=== PATIENT | female | born 1995 | race Caucasian/White ===

== ENCOUNTER → 2020-01-11 12:29 | Outpatient (BNVA) | payer OTHER, SELFPAY | PROVIDERS: PCP Internal Medicine; Referring Provider Internal Medicine; Visit Provider Advanced Practice Midwife | DX: Z76.89 Persons encountering health services in other specified circumstances (principal) ==

== ENCOUNTER 2020-11-14 10:00 | Outpatient (REF) | payer OTHER, SELFPAY ==
[2020-11-14 13:37] LABS: CT PCR NOT DETECTED (Not Detect.); NG PCR NOT DETECTED (Not Detect.)
== END 2020-11-14 10:01 | disposition home or self-care (01) ==
LOC: HO.LAB 10:00
PROVIDERS: PCP Internal Medicine; Visit Provider Advanced Practice Midwife
DX: Z11.3 Encounter for screening for infections with a predominantly sexual mode of transmission (principal); Z20.2 Contact with and (suspected) exposure to infections with a predominantly sexual mode of transmission
CPT/HCPCS: 87491; 87591

== ENCOUNTER 2021-11-19 11:10 | Outpatient (REF) | payer BC, SELFPAY ==
[2021-11-19 14:44] LABS: CT PCR NOT DETECTED (Not Detect.); NG PCR NOT DETECTED (Not Detect.)
== END 2021-11-19 11:11 | disposition home or self-care (01) ==
LOC: HO.LAB 11:10
PROVIDERS: Visit Provider Advanced Practice Midwife
DX: Z01.419 Encounter for gynecological examination (general) (routine) without abnormal findings (principal)
CPT/HCPCS: 87491; 87591; 88142

== ENCOUNTER 2022-12-26 08:53 | Outpatient (REF) | payer BC, SELFPAY | END 2022-12-26 08:54 | disposition home or self-care (01) | LOC: HO.LNP 08:53 | PROVIDERS: Visit Provider Advanced Practice Midwife | DX: Z13.89 Encounter for screening for other disorder (principal) ==

== ENCOUNTER 2022-12-26 08:53 | Outpatient (AMB) | payer BC, SELFPAY ==
--- NOTE | 2022-12-26 08:56 | MHC.OFFVIS ---
Intake Vital Signs 12/26/22 08:57 Height 5 ft 3 in Weight 196 lb BMI 34.7 BP 100/60 Intake Visit Reasons: Annual Intake Note: The patient agreed to use of a medical stenographer during this encounter. Scribed for AIDA Villarreal by Jennifer Marrero, medical stenographer, on 12/26/2022 at 9:08 am EST. Cold Saw Operator: Cold Saw Operator Present (Jocelyn) Allergies No Known Allergies Allergy (Verified 12/26/22 08:57) Latex Allergy (Unknown, Uncoded 11/19/21 10:33) swollen Is last menstrual period known: Yes Last menstrual period: 12/25/22 HPI HPI Comments History of Present Illness Details She is a premenopausal woman presenting for annual exam. She admits to eating healthy and tries to stay active with exercise. Currently sexually active. Uses OCP and is doing well with it. She is not interested in ever having children. Wanted to know her snf options. Admits left sided vaginal itching. Denies any new soaps or detergents. STD screening and blood work offered; she accepts. Denies family hx of colon and ovarian cancer. Last pap smear 11/19/21. She denies any contraindications to control such as: migraines with aura, history of DVT or pulmonary emboli, high blood pressure, liver disease, thrombolic disorders, Lupus, +JHONNY, or smoking. [facility] Medical History History of anxiety disorder History of OCD (obsessive compulsive disorder) History of depression Hx of multiple concussions Surgical History Hx of adenoidectomy Family History (Updated 12/26/22 @ 09:10 by Jennifer Marrero) Father PTSD (post-traumatic stress disorder) History of major depression FH: HTN (hypertension) Mother Chronic pain Diabetes FH: HTN (hypertension) Maternal Aunt Breast CA Maternal Aunt No problems noted. Maternal Grandfather Diabetes Social History Alcohol intake: never Patient Tobacco Use Status: Never used Tobacco Current occupational status: employed Current occupation: Health teacher Sexual orientation: Straight/Heterosexual Gender identity: Female Female Reproductive History Menstrual Age of Menarche: 13 Duration of menses: 3-5 days Date of last menstrual period: 12/25/22 control method: pills Total pregnancies: 0 Date of last pap smear: 11/19/21 (neg) Physical Exam Vital Signs: Last Vital Signs BP 100/60 12/26/22 08:57 BMI result Body Mass Index 34.7 Const General: cooperative, healthy appearing, no acute distress, well developed and alert Orientation/consciousness: patient oriented x3 HEENT Head: Yes normal to inspection Eyes General: appearance normal, both eyes and all related structures Neck Neck: Yes normal visual inspection Thyroid: Thyroid normal Chest Chest palpation & inspection: normal inspection of the chest Breast/axilla inspection: normal inspection of the breasts (no puckering, dimpling, peau de orange, retraction, discharge, masses) Breast/axilla palpation: normal palpation of the breasts Resp Effort & Inspection: normal respiratory effort GI Inspection: Yes normal to inspection Palpation (GI): Soft to palpation (to palpation) Rectal Exam - Female: deferred General: Yes bladder normal to inspection External Female Exam: normal external appearance and normal appearance of the urethra Speculum Exam - Vagina: normal appearance of the vagina, normal palpation and normal vaginal discharge Speculum Exam - Cervix: normal appearance of the cervix, normal palpation and Other cervical findings present (moderate amount of dark red blood) Bimanual exam- vagina & uterus: normal palpation and normal palpation Bimanual Exam- Adnexa, other: normal adnexae and no masses Skin General skin exam: no rashes or lesions noted Neuro General: patient oriented x3 Cognition (Neuro): normal cognition Extrem General: Yes normal to inspection Psych Attitude: cooperative Thought process: Normal thought process present Assessment & Plan Assessment & Plan (1) Encounter for well woman exam: Code(s): Z01.419 - Encounter for gynecological examination (general) (routine) without abnormal findings Plan: Discussed: Current recommendations for pap smears per ASCCP guidelines. Breast awareness and periodic self breast exams. Maintaining a healthy lifestyle including a well balanced diet and routine exercise. If missed menses take at home test. Encouraged patient to sign up for patient portal. All of her questions and concerns were addressed to the best of my ability. RTO in one year for AG (2) Vaginal itching: Code(s): N89.8 - Other specified noninflammatory disorders of vagina Plan: BV testing and GC/CT panel today. STD blood work ordered. Await results and treat accordingly. (3) Contraceptive surveillance: Code(s): Z30.40 - Encounter for surveillance of contraceptives, unspecified Plan: Discussed risk and benefits of IUD and OCP's. Continue OCP's. Monitor her bleeding and contact the office with any concerns. She was instructed to go to ER if she develops loss of vision, severe headache that does not resolve, chest pain, difficulty breathing, abdominal pain, or pain or tenderness in extremity. Call the office with any concerns. Orders: Orders CT NG by PCR Today Z20.2 - Contact with and (suspected) exposure to infections with a predominantly sexual mode of transmission Medications: Refilled norethindrone-e.estradiol-iron 1 mg-20 mcg (21)/75 mg (7) 1 tab PO DAILY 84 tabs 4RF 84 days Coding Level of Care Code Est Pt Prev Care 18-39y(72039) Diagnoses Encounter for well woman exam Z01.419 Vaginal itching N89.8 Contraceptive surveillance Z30.40
[2022-12-26 08:57] VITALS: BP 100/60; BMI 34.7
== END 2022-12-26 09:19 | disposition home or self-care (01) ==
PROVIDERS: Visit Provider Advanced Practice Midwife
DX: Z01.419 Encounter for gynecological examination (general) (routine) without abnormal findings (principal); N89.8 Other specified noninflammatory disorders of vagina; Z30.40 Encounter for surveillance of contraceptives, unspecified
CPT/HCPCS: 99395

== ENCOUNTER 2022-12-26 09:23 | Outpatient (REF) | payer BC, SELFPAY ==
[2022-12-26 12:31] LABS: CT PCR NOT DETECTED (Not Detect.); NG PCR NOT DETECTED (Not Detect.)
== END 2022-12-26 09:24 | disposition home or self-care (01) ==
LOC: HO.LAB 09:23
PROVIDERS: Visit Provider Advanced Practice Midwife
DX: Z20.2 Contact with and (suspected) exposure to infections with a predominantly sexual mode of transmission (principal)
CPT/HCPCS: 0353U

== ENCOUNTER 2024-05-06 10:30 | Outpatient (REF) | payer BC, SELFPAY ==
--- OUTSIDE RECORDS SUMMARY | 2024-05-06 11:12 | XMS_ITS | Encounter Summary ---
Author Organization [facility] Address [address] [place] [address] Phone Care Team Providers Care Manager Mechanical Name Role Phone Sheila Mckeon MD Primary Care Provider Unava ilable Encounter Details Date Type Department Care Team (Late st Contact Info) Description 03/12/2011 Documentation EM Family Medicine [address] [place] [address] Family Medicine, Physician [address] [place], [place] [phone] Social History Tobacco Use Types Packs/Day Years [...] on filedocumented in this encounter Care Teams Manager Mechanical Relationship Specialty Start Date End Date Sheila Mckeon MD PCP - General 11/08/16 documented as of this encounter
--- OUTSIDE RECORDS SUMMARY | 2024-05-06 11:12 | XMS_ITS | Encounter Summary ---
Author Organization [facility] Address [address] [place] [phone] Phone Care Team Providers Care Steel Checker Name Role Phone Sheila Mckeon MD Primary Care Provider Unava ilable Encounter Details Date Type Department Care Team (Late st Contact Info) Description 07/07/2013 Documentation EM Family Medicine [address] [place] [address] Family Medicine, Physician [address] [place], [place] [phone] Social History Tobacco Use Types Packs/Day Years [...] on filedocumented in this encounter Care Teams Steel Checker Relationship Specialty Start Date End Date Sheila Mckeon MD PCP - General 11/08/16 documented as of this encounter
--- OUTSIDE RECORDS SUMMARY | 2024-05-06 11:12 | XMS_ITS | Encounter Summary ---
Author Organization [facility] Address [address] [place] [address] Phone Care Team Providers Care Tool Planer Set Up Operator Name Role Phone Sheila Mckeon MD Primary Care Provider Unava ilable Encounter Details Date Type Department Care Team (Late st Contact Info) Description 07/19/2014 Documentation EM Family Medicine [address] [place] [address] Family Medicine, Physician [address] [place], [place] [phone] Social History Tobacco Use Types Packs/Day Years [...] on filedocumented in this encounter Care Teams Tool Planer Set Up Operator Relationship Specialty Start Date End Date Sheila Mckeon MD PCP - General 11/08/16 documented as of this encounter
--- OUTSIDE RECORDS SUMMARY | 2024-05-06 11:12 | XMS_ITS | Clinical Summary ---
Author Organization [facility] Address [address] [place] [address] Phone Care Team Providers Care Marketing Professional Name Role Phone Sheila Mckeon MD Primary [...] of Obesity, No family history of *Sudden /[place] under 55, Family history of *Thrombophilia, Family [...] complete this topic Procedures * Due to [facility] law, this organization might not be sharing sensitive test results. Procedure Name Priority Date/Time Associated Diagnosis Comments CHLAMYDIA AND GONORRHEA, AMPLIFIED Routine 08/22/2016 1:30 PM EDT from Last 3 Months or Most Recently Relevant to Health Maintenance Results * Due to [place] [employer] law, this organization might not be sharing sensitive test results. * Chlamydia and Gonorrhoea, Amplified (08/22/2016 1:30 PM EDT) Pathologist [facility] URINE CHLAMYDIA AMP PROBE NEGATIVE [facility] Comment: No Chlamydia Trachomatis RNA detected in this patient's sample (REFERENCE RANGE/NORMAL VALUE: NOT DETECTED) URINE GC AMP PROBE NEGATIVE [facility] Comment: No Neisseria Gonorrhoeae RNA detected in this patient's sample (REFERENCE RANGE/NORMAL VALUE: NOT DETECTED) NOTE: This test uses lopper-mediated amplification method to detect rRNA from C.Trachomatis [...] without risk of sexual abuse. Consult the [facility] if needed. Contact phone number . Therapeutic failure or success cannot be determined with the Aptima Combo2 assay since nucleic acid may persist following appropriate antimicrobial therapy. The Centers for Disease Control and Prevention (CDC) recommends confirmatory retesting using culture or a different nucleic acid amplification test when positive results occur, if indicated. Testing performed or reported by [facility], a Service of [facility], [place] [address] CLIA ??[id number] Greyson Ennis MD, PhD, Control Room Supervisor 08/22/2016 1:30 PM EDT Narrative [facility] - 08/22/2016 1:30 PM EDT URINE CHLAMYDIA GC AMP PROBE us Sheila Mckeon MD LAB MICROBIOLOGY - GENERAL O RDERABLES Final Result [facility] [address] [id number], [place] from Last 3 Months or Most Recently Relevant to Health Maintenance Care Teams Marketing Professional Relationship Specialty Start Date End Date Sheila Mckeon MD PCP - General 11/08/16
--- OUTSIDE RECORDS SUMMARY | 2024-05-06 11:12 | XMS_ITS | Encounter Summary ---
Author Organization [facility] Address [address] [place] [phone] Phone Care Team Providers Care Gas Operations Analyst Name Role Phone Sheila Mckeon MD Primary Care Provider Unava ilable Encounter Details Date Type Department Care Team (Late st Contact Info) Description 07/20/2014 Documentation EM Family Medicine [address] [place] [address] Family Medicine, Physician [address] [place], [place] [phone] Social History Tobacco Use Types Packs/Day Years [...] on filedocumented in this encounter Care Teams Gas Operations Analyst Relationship Specialty Start Date End Date Sheila Mckeon MD PCP - General 11/08/16 documented as of this encounter
--- OUTSIDE RECORDS SUMMARY | 2024-05-06 11:12 | XMS_ITS | Encounter Summary ---
Author Organization [facility] Address [address] [place] [address] Phone Care Team Providers Care Floor Specialist Name Role Phone Sheila Mckeon MD Primary Care Provider Unava ilable Encounter Details Date Type Department Care Team (Late st Contact Info) Description 11/14/2015 Documentation EM Family Medicine [address] [place] [address] Family Medicine, Physician [address] [place] [place], [place] [phone] Social History Tobacco Use Types Packs/Day Years [...] on filedocumented in this encounter Care Teams Floor Specialist Relationship Specialty Start Date End Date Sheila Mckeon MD PCP - General 11/08/16 documented as of this encounter
--- OUTSIDE RECORDS SUMMARY | 2024-05-06 11:12 | XMS_ITS | Encounter Summary ---
Author Organization [facility] Address [address] [place] [address] Phone Care Team Providers Care Electronic Masking System Operator Name Role Phone Sheila Mckeon MD Primary Care Provider Unava ilable Encounter Details Date Type Department Care Team (Late st Contact Info) Description 11/14/2016 Conversion Encounter [facility] - [address] [address] Social History Tobacco Use Types Packs/Day Years [...] on filedocumented in this encounter Care Teams Electronic Masking System Operator Relationship Specialty Start Date End Date Sheila Mckeon MD PCP - General 11/08/16 documented as of this encounter
--- OUTSIDE RECORDS SUMMARY | 2024-05-06 11:12 | XMS_ITS | Encounter Summary ---
Author Organization [facility] Address [address] [place] [address] Phone Care Team Providers Care Counter Supply Worker Name Role Phone Sheila Mckeon MD Primary Care Provider Unava ilable Encounter Details Date Type Department Care Team (Late st Contact Info) Description 06/25/2013 Documentation EM Family Medicine [address] [place] [address] Family Medicine, Physician [address] [place], [place] [phone] Social History Tobacco Use Types Packs/Day Years [...] on filedocumented in this encounter Care Teams Counter Supply Worker Relationship Specialty Start Date End Date Sheila Mckeon MD PCP - General 11/08/16 documented as of this encounter
== END 2024-05-06 10:31 | disposition home or self-care (01) ==
LOC: HO.LNP 10:30
PROVIDERS: PCP Internal Medicine; Visit Provider Advanced Practice Midwife
DX: Z01.419 Encounter for gynecological examination (general) (routine) without abnormal findings (principal)
CPT/HCPCS: 88175

== ENCOUNTER → 2024-05-06 10:30 | Outpatient (AMB) | payer BC, SELFPAY ==
--- OUTSIDE RECORDS SUMMARY | 2024-05-06 10:32 | XMS_ITS | Encounter Summary ---
Author Organization [facility] Address [address] [place] [address] Phone Care Team Providers Care Survey Supervisor Name Role Phone Sheila Mckeon MD Primary Care Provider Unava ilable Encounter Details Date Type Department Care Team (Late st Contact Info) Description 06/25/2013 Documentation EM Family Medicine [address] [place] [address] Family Medicine, Physician [address] [place], [place] [id number] Social History Tobacco Use Types Packs/Day Years Used Date Smoking Tobacco: Never Assessed Comments Unknown Sex and Gender Information Value Date Recorded Sex Assigned at Not on file Legal Sex Female 5:01 PM EDT Gender Identity Not on file Sexual Orientation Not on file documented as of this encounter Plan of Treatment Not on file documented as of this encounter Visit Diagnoses Not on filedocumented in this encounter Care Teams Survey Supervisor Relationship Specialty Start Date End Date Sheila Mckeon MD PCP - General 11/08/16 documented as of this encounter
--- OUTSIDE RECORDS SUMMARY | 2024-05-06 10:32 | XMS_ITS | Encounter Summary ---
Author Organization [facility] Address [address] [place] [address] Phone Care Team Providers Care Seo Specialist Name Role Phone Sheila Mckeon MD Primary Care Provider Unava ilable Encounter Details Date Type Department Care Team (Late st Contact Info) Description 03/12/2011 Documentation EM Family Medicine [address] [place] [address] Family Medicine, Physician [address] [place], [place] [address] Social History Tobacco Use Types Packs/Day Years [...] on filedocumented in this encounter Care Teams Seo Specialist Relationship Specialty Start Date End Date Sheila Mckeon MD PCP - General 11/08/16 documented as of this encounter
--- OUTSIDE RECORDS SUMMARY | 2024-05-06 10:32 | XMS_ITS | Encounter Summary ---
Author Organization [facility] Address [address] [place] [address] Phone Care Team Providers Care Caterpillar Driver Name Role Phone Sheila Mckeon MD Primary Care Provider Unava ilable Encounter Details Date Type Department Care Team (Late st Contact Info) Description 11/14/2016 Conversion Encounter [facility] - [address] [address] Social History Tobacco Use Types Packs/Day Years Used Date Smoking Tobacco: Never Comments:Never smoker Comments Unknown Sex and Gender Information Value Date Recorded Sex Assigned at Not on file Legal Sex Female 5:01 PM EDT Gender Identity Not on file Sexual Orientation Not on file documented as of this encounter Plan of Treatment Not on file documented as of this encounter Visit Diagnoses Not on filedocumented in this encounter Care Teams Caterpillar Driver Relationship Specialty Start Date End Date Sheila Mckeon MD PCP - General 11/08/16 documented as of this encounter
--- OUTSIDE RECORDS SUMMARY | 2024-05-06 10:32 | XMS_ITS | Continuity of Care Document ---
Author Organization [facility] Address [address] [place] [address]- Care Team Providers Care Uranium Processing Supervisor Name Role Phone Oscar Amaya MD Primary Care Physician [phone] Encounter [facility] Date(s): 04/27/24 - 05/04/24 [facility] Adult [address] [place] [address]- Encounter Diagnosis Acute sinusitis(Discharge Diagnosis) - 04/27/24 Attending Physician: Not on Staff, Attending MD Referring Physician: Oscar Amaya MD Encounter Type: Office Visit Allergies, Adverse Reactions, Alerts Substance Criticality Severity Reaction Reaction Severity Status Latex Active Immunizations Given and Recorded Vaccine Date Status Refusal Reason influenza virus vaccine, inactivated 03/26/22 Give n influenza virus vaccine, inactivated 03/29/19 Give n influenza virus vaccine, inactivated 03/23/18 Give n influenza virus vaccine, inactivated 01/06/13 Owen rded SARS-CoV-2 (COVID-19) mRNA-1273 vaccine 10/08/20 R ecorded SARS-CoV-2 (COVID-19) mRNA-1273 vaccine 1 09/08/20 Recorded tetanus/diphtheria/pertussis, acel(Tdap) 2 08/13/17 Recorded tetanus/diphtheria/pertussis, acel(Tdap) 12/09/07 Recorded Hepatitis A Pediatric Vaccine 08/21/16 Recorded Hepatitis A Pediatric Vaccine 04/10/15 Recorded Meningococcal Conjugate Vaccine 11/16/13 Recorded Meningococcal Conjugate Vaccine 12/09/07 Recorded Human Papillomavirus Vaccine 10/24/11 Recorded Human Papillomavirus Vaccine 12/27/10 Recorded Human Papillomavirus Vaccine 11/22/09 Recorded Varicella Virus Vaccine 11/22/09 Recorded Varicella Virus Vaccine 07/31/98 Recorded Poliovirus Vaccine, Inactivated 07/31/00 Recorded Poliovirus Vaccine, Inactivated 03/30/96 Recorded Poliovirus Vaccine, Inactivated 01/29/96 Recorded Poliovirus Vaccine, Inactivated 95 Recorded Measles/Mumps/Rubella Virus Vaccine 12/05/99 Recor ded Measles/Mumps/Rubella Virus Vaccine 08/16/96 Recor ded hepatitis B pediatric vaccine 03/30/96 Recorded hepatitis B pediatric vaccine 95 Recorded hepatitis B pediatric vaccine 95 Recorded 1Result Comment: left deltoid lot [id number] exp 03-30-[address] [facility] 2Location History: [facility] Medications amitriptyline 10 mg oral tablet 10 mg, 1, tablet, By Mouth, Daily at bedtime, # 30 tablet, Refills 11, Tot. Refills 11, Maintenance, 07/22/23 4:23:00 PM EDT, Route to Pharmacy Electronically, [facility]/pharmacy #[id number], Partial fill upon patient request if the prescription is for a schedule II opioid drug., 160.3, cm, 04/30/23 11:04:00 EST , Height Start Date: 07/22/23 Status: Ordered Quantity: 30.0 Unit: tablet Repeat number: 12 Augmentin 875 mg-125 mg oral tablet 1 tablet, By Mouth, Every 12 hours, for 10 days, # 20 tablet, 0 Refills, Acute 05/07/24 9:22:00 AM EST, 04/27/24 9:22:00 AM EST, [facility]/pharmacy #[id number], Partial fill upon patient request if the prescriptionis for a schedule II opioid drug., 160.3, cm, 04/27/24 9:09:00 EST, Height Start Date: 04/27/24 Stop Date: 05/07/24 Status: Ordered Quantity: 20.0 Unit: tablet Repeat number: 1 doxycycline hyclate 100 mg oral tablet 1 tablet = 100 mg, By Mouth, 2 times a day, for 10 days, # 20 tablet, 0 Refills, Acute 05/09/24 12:51:00 PM EST, 04/29/24 12:51:00 PM EST, [facility]/pharmacy #[id number], Partial fill upon patient request if the prescription is for a schedule II opioid drug., 160.3, cm, 04/27/24 9:09:00 EST, Height Start Date: 04/29/24 Stop Date: 05/09/24 Status: Ordered Quantity: 20.0 Unit: tablet Repeat number: 1 FLUoxetine 20 mg oral capsule 1, capsule, By Mouth, Daily, # 90 capsule, Refills 3, Maintenance, 11/26/23 4:26:00 PM EDT, Route toPharmacy Electronically, [id number], 160.3, cm, 11/17/23 13:29:00 EDT, Height Start Date: 11/26/23 Status: Ordered Quantity: 90.0 Unit: capsule Repeat number: 1 04/19 oral tablet 1 tablet, By Mouth, Daily, # 28 tablet, 0 Refills, Maintenance, 09/04/17 11:41:41 AM EDT, Tablet Start Date: 09/04/17 Status: Ordered Quantity: 28.0 Unit: tablet Repeat number: 1 SUMAtriptan 50 mg oral tablet 1 tablet = 50 mg, By Mouth, Once, PRN as needed for migraine headache, may repeat dose after 2 hours up to a maximum of 200 mg in 24 hours, # 9 tablet, 5 Refills, Soft Stop, 07/22/23 4:23:00 PM EDT, Tablet, [id number], Partial fill upon patient request if the prescription is for a schedule II opioid drug., 160.3, cm, 04/30/23 11:04:00 EST, Height Start Date: 07/22/23 Status: Ordered Quantity: 9.0 Unit: tablet Repeat number: 6 Problem List Condition Confirmation Course Effective Dates Status Health St atus Informant Anxiety Confirmed Active Community acquired MRSA infection Confirmed Active Brain concussion Confirmed Active COVID-19 virus infection Confirmed Active Dyslipidemia Confirmed Active Healthy adolescent Confirmed Active Cough with hemoptysis Confirmed Active Hidradenitis suppurativa Confirmed Active Major depression Confirmed Active Cervical sprain Confirmed Active Obesity Confirmed Active Obsessive compulsive disorder Confirmed Active Plantar fasciitis Confirmed Active Severe obesity (BMI 35.0-39.9) with comorbidity Confirmed Active Syncope Confirmed Active Tremor Confirmed Active Diagnosis Diagnosis Type Effective Dates Health Status inical Service Informant Acute sinusitis Discharge Diagnosis 04/27/24 Vital Signs Most recent to oldest [Reference Range]: 1 Height 160.3 cm (04/27/24 9:09 AM) Weight 92.2 kg (04/27/24 9:09 AM) Oxygen Saturation [94-100 %] 96 % (04/27/24 9:09 AM) Pulse Rate [55-90 bpm] 108 bpm *H* (04/27/24 9:09 AM) Body Mass Index [18.5-24.99 kg/m2] 35.88 kg/m2 *>HHI* (04/27/24 9:09 AM) Blood Pressure [90-138/55-84 mm Hg] 108/ 75mm Hg (04/27/24 9:09 AM) Temperature [96.8-100.4 DegF] 97.8 DegF (04/27/24 9:09 AM) Blood pressure sites Arm, left (04/27/24 9:09 AM) Temperature Route Oral (04/27/24 9:09 AM) Weight Obtained Via Standing scale (04/27/24 9:09 AM) Social History Social History Type Response Smoking Status Never smoker entered on: 09/04/17 Sex Sex Representation Female (finding) Patient Care team information Care Team Personnel Name: Monique LEGGETT, Oscar Childress Position: S Physician - Primary Care Member Role: PCP Address: [address] [place] [id number] Telecom: Care Team Related Persons Name: DEEPTI OLEARY Name: LUISANA FUENTES Name: LUISANA FUENTES Insurance Providers Guarantor name: LUISANA FUENTES Health Plan Information #: 1 Payer: [employer] Member Number: [id number] Policy Number: NA Group Number: [id number] Health Plan Information #: 2 Payer: [employer] Member Number: [id number] Policy Number: NA Group Number: [id number]
--- OUTSIDE RECORDS SUMMARY | 2024-05-06 10:32 | XMS_ITS | Clinical Summary ---
Author Organization [facility] Address [address] [place] [address] Phone Care Team Providers Care Pcts Name Role Phone Sheila Mckeon MD Primary Care Provider Unava ilable Immunizations Immunization Administration Dates Next Due DTP 01/29/1996,1995 DTaP 5 07/31/2000,06/28/1997,03/30/1996 HPV, Quadrivalent 10/24/2011,12/27/2010,11/23/19 10 Hep A, Adult 08/21/2016,04/10/2015 Hep B, ped/adol 03/30/1996,1995,1995 Hib (PRP-T) 11/28/1996, 6,01/29/1996,11/28 IPV 07/31/2000, 6,01/29/1996,11/28 Influenza, injectable, quadrivalent 03/29/2014 Influenza, injectable, quadr ivalent, preservative free 01/06/2013 Influenza, intranasal, trivalent 01/20/2012,11/30,11/22/2009 MMR 12/05/1999,08/16/1996 Meningococcal Conj (Menactra) MCV4P 11/16/2013,0 12/09/2007 Tdap 12/09/2007 Varicella 11/22/2009,07/31/1998 Family History Relation Name Status Comments Brother Alive Brother: Alive and well Father Alive Father: Alive a nd well Mother Alive Mother: Alive a nd well Other Family history of Depression, Family history of Migraines, No family history of Asthma, No family history of Strabismus, No family history of Deafness, No family history of Developmental dislocation of hip, Family history of Cancer, breast, No family history of Seizure disorder, Family history of cancer, skin, Family history of Obesity, No family history of *Sudden /[place] under 55, Family history of *Thrombophilia, Family history of Hypertension, Family history of Hyperlipidemia, Family history of *CVA/Stroke, Family history of *Heart Disease, Family history of Diabetes mellitus, Family history of ADD/ADHD Social History Tobacco Use Types Packs/Day Years Used Date Smoking Tobacco: Never Comments:Never smoker Comments Unknown Sex and Gender Information Value Date Recorded Sex Assigned at Not on file Legal Sex Female 5:01 PM EDT Gender Identity Not on file Sexual Orientation Not on file Last Filed Vital Signs Vital Sign Reading Time Taken Comments Blood Pressure 94/52 08/21/2016 12:00 AM EDT Pulse 75 04/10/2015 12:00 AM EST Temperature 36.2 ??C (97.2 ??F) 07/18/2014 12:00 AM E DT Respiratory Rate - - Oxygen Saturation 98% 07/18/2014 12:00 AM EDT Inhaled Oxygen Concentration - - Weight 76.7 kg (169 lb) 08/21/2016 12:00 AM EDT Height 162.6 cm (5' 4 ) 08/21/2016 12:00 AM EDT Body Mass Index 29.01 08/21/2016 12:00 AM EDT Plan of Treatment Health Maintenance Due Date Last Done Comments DTaP,Tdap,and Td Vaccines (7 - Td or Tdap) 12/08/2017 12/09/2007, 07/31/2000, 06/28/1997, Additional history exists Influenza Vaccines (#1) 2023 03/29/20 14, 01/06/2013, 01/20/2012, Additional history exists COVID-19 Vaccine ( season) 2023 Hepatitis B Vaccines Completed 03/30/1996, 1995, 1995 HIB Vaccines Completed 11/28/1996, 03/02, 01/29/1996, Additional history exists MMR Vaccines Completed 12/05/1999, 08/16/1996 IPV Vaccines Completed 07/31/2000, 03/02, 01/29/1996, Additional history exists Varicella Vaccines Completed 11/22/2009, 07/31/1998 HPV Vaccines Completed 10/24/2011, 11/30, 11/22/2009 Meningococcal Vaccine Completed 11/16/2013, 008 Hepatitis A Vaccines Aged Out 08/21/2016, 04/10/19 16 No longer eligible based on patient's age to complete this topic Men B Vaccine Aged Out No longer elig ible based on patient's age to complete this topic Pneumococcal Vaccine Aged Out No long er eligible based on patient's age to complete this topic Procedures * Due to [facility] law, this organization might not be sharing sensitive test results. Procedure Name Priority Date/Time Associated Diagnosis Comments CHLAMYDIA AND GONORRHEA, AMPLIFIED Routine 08/22/2016 1:30 PM EDT from Last 3 Months or Most Recently Relevant to Health Maintenance Results * Due to [place] [employer] law, this organization might not be sharing sensitive test results. * Chlamydia and Gonorrhoea, Amplified (08/22/2016 1:30 PM EDT) Pathologist [facility] URINE CHLAMYDIA AMP PROBE NEGATIVE [facility] Comment: No Chlamydia Trachomatis RNA detected in this patient's sample (REFERENCE RANGE/NORMAL VALUE: NOT DETECTED) URINE GC AMP PROBE NEGATIVE [facility] Comment: No Neisseria Gonorrhoeae RNA detected in this patient's sample (REFERENCE RANGE/NORMAL VALUE: NOT DETECTED) NOTE: This test uses short haul driver-mediated amplification method to detect rRNA from C.Trachomatis and N.Gonorrhoeae. A negative result does not preclude infection. In the case of a negative urine result, testing of an endocervical(female) or urethral(male) specimen is recommended if there is high clinical suspicion of infection. The performance characteristics of this test have not been evaluated in children. The Aptima Combo2 assay is not intended for the evaluation of suspected sexual abuse or for other medico-legal indications. The ordering provider should assess if the patient had consensual sex without risk of sexual abuse. Consult the [facility] if needed. Contact phone number . Therapeutic failure or success cannot be determined with the Aptima Combo2 assay since nucleic acid may persist following appropriate antimicrobial therapy. The Centers for Disease Control and Prevention (CDC) recommends confirmatory retesting using culture or a different nucleic acid amplification test when positive results occur, if indicated. Testing performed or reported by [facility], a Service of [facility], [place] [address] CLIA ??[id number] Greyson Ennis MD, PhD, Auto Glass Installer 08/22/2016 1:30 PM EDT Narrative [facility] - 08/22/2016 1:30 PM EDT URINE CHLAMYDIA GC AMP PROBE us Sheila Mckeon MD LAB MICROBIOLOGY - GENERAL O RDERABLES Final Result [facility] [address] [id number], [place] from Last 3 Months or Most Recently Relevant to Health Maintenance Care Teams Pcts Relationship Specialty Start Date End Date Sheila Mckeon MD PCP - General 11/08/16
--- OUTSIDE RECORDS SUMMARY | 2024-05-06 10:32 | XMS_ITS | Encounter Summary ---
Author Organization [facility] Address [address] [place] [phone] Phone Care Team Providers Care Beauty Culture Teacher Name Role Phone Sheila Mckeon MD Primary Care Provider Unava ilable Encounter Details Date Type Department Care Team (Late st Contact Info) Description 11/14/2015 Documentation EM Family Medicine [address] [place] [address] Family Medicine, Physician [address], [place] [address] Social History Tobacco Use Types Packs/Day Years [...] on filedocumented in this encounter Care Teams Beauty Culture Teacher Relationship Specialty Start Date End Date Sheila Mckeon MD PCP - General 11/08/16 documented as of this encounter
--- OUTSIDE RECORDS SUMMARY | 2024-05-06 10:32 | XMS_ITS | Encounter Summary ---
Author Organization [facility] Address [address] [place] [address] Phone Care Team Providers Care Inpatient Auditor Name Role Phone Sheila Mckeon MD Primary Care Provider Unava ilable Encounter Details Date Type Department Care Team (Late st Contact Info) Description 07/19/2014 Documentation EM Family Medicine [address] [place] [address] Family Medicine, Physician [address] [place], [place] [address] Social History Tobacco Use Types Packs/Day Years [...] on filedocumented in this encounter Care Teams Inpatient Auditor Relationship Specialty Start Date End Date Sheila Mckeon MD PCP - General 11/08/16 documented as of this encounter
--- OUTSIDE RECORDS SUMMARY | 2024-05-06 10:32 | XMS_ITS | Encounter Summary ---
Author Organization [facility] Address [address] [place] [address] Phone Care Team Providers Care Food Stylist Name Role Phone Sheila Mckeon MD Primary Care Provider Unava ilable Encounter Details Date Type Department Care Team (Late st Contact Info) Description 07/07/2013 Documentation EM Family Medicine [address] [place] [address] Family Medicine, Physician [address] [place], [place] [phone] Social History Tobacco Use Types Packs/Day Years [...] on filedocumented in this encounter Care Teams Food Stylist Relationship Specialty Start Date End Date Sheila Mckeon MD PCP - General 11/08/16 documented as of this encounter
--- OUTSIDE RECORDS SUMMARY | 2024-05-06 10:32 | XMS_ITS | Encounter Summary ---
Author Organization [facility] Address [address] [place] [phone] Phone Care Team Providers Care Brattice Builder Name Role Phone Sheila Mckeon MD Primary Care Provider Unava ilable Encounter Details Date Type Department Care Team (Late st Contact Info) Description 07/20/2014 Documentation EM Family Medicine [address] [place] [address] Family Medicine, Physician [address] [place], [place] [phone] Social History Tobacco Use Types Packs/Day Years [...] on filedocumented in this encounter Care Teams Brattice Builder Relationship Specialty Start Date End Date Sheila Mckeon MD PCP - General 11/08/16 documented as of this encounter
--- NOTE | 2024-05-06 10:35 | A.OFFVIS_ITS ---
Vital Signs 05/06/24 10:40 Height 5 ft 3 in Weight 193 lb BMI 34.2 BP 98/60 Intake Visit Reasons: Annual Intake Note: no concerns Edge Burnisher Uppers Required: No Information Interpreted: non-clinical & clinical Director Of Sustainability Programs: Director Of Sustainability Programs Present (Becka PARDO) Accompanied by: Self / Same As Patient Allergies No Known Allergies Allergy (Verified 05/06/24 10:41) Latex Allergy (Unknown, Uncoded 05/06/24 10:41) swollen Is last menstrual period known: Yes Last menstrual period: 05/03/24 HPI Comments Details: She is a premenopausal woman presenting for annual examination. Doing well with it operations analyst concerns. Currently doing well on control pills reports having monthly migraines, no aura. She is uncertain if this is occurring on her placebo week. She is not interested in having future . She denies any contraindications to control such as: migraines with aura, history of DVT or pulmonary emboli, high blood pressure, liver disease, thrombolic disorders, Lupus, +JHONNY, breast cancer, or smoking. Currently is sexually active with nilo a 5 years. She denies vaginal itching and irritation. STI screening offered; she declines. She tries to eat healthy and stays active with exercise. Denies family history of ovarian or colon cancer. FH breast cancer. Last pap smear 2021, negative. [facility] Medical History History of anxiety disorder History of OCD (obsessive compulsive disorder) History of depression Hx of multiple concussions Surgical History Hx of adenoidectomy Family History Father PTSD (post-traumatic stress disorder) History of major depression FH: HTN (hypertension) Mother Chronic pain Diabetes FH: HTN (hypertension) Maternal Aunt Breast CA Maternal Aunt No problems noted. Maternal Grandfather Diabetes Social History Alcohol intake: never Patient Tobacco Use Status: Never used Tobacco Current occupational status: employed Current occupation: Health teacher Sexual orientation: Straight/Heterosexual Gender identity: Female Female Reproductive History Menstrual Age of Menarche: 13 Duration of menses: 3-5 days Date of last menstrual period: 05/03/24 control method: pills Total pregnancies: 0 Date of last pap smear: 11/20/21 Review of Systems Const All systems reviewed & are unremarkable except as noted in HPI and below Reports as per HPI Eyes Reports no additional complaints ENT Reports no additional complaints Card Reports no additional complaints Resp Reports no additional complaints GI Reports as per HPI and Reports no additional complaints Reports as per HPI Musc Reports no additional complaints Skin/Breast Reports as per HPI Neuro Reports no additional complaints Psych Reports no additional complaints Endo Reports no additional complaints Cesar/Lymph Reports no additional complaints Aller/Immun Reports no additional complaints Physical Exam Vital Signs: Last Vital Signs BP 98/60 05/06/24 10:40 BMI result Body Mass Index 34.2 Const General: cooperative, healthy appearing, no acute distress, well developed and alert Orientation/consciousness: patient oriented x3 HEENT Head: Yes normal to inspection Eyes General: appearance normal, both eyes and all related structures Neck Neck: Yes normal visual inspection Thyroid: Thyroid normal Chest Chest palpation & inspection: normal inspection of the chest and other (no puckering, dimpling, peau de orange, retraction, discharge, masses) Breast/axilla inspection: normal inspection of the breasts Breast/axilla palpation: normal palpation of the breasts Resp Effort & Inspection: normal respiratory effort GI Inspection: Yes normal to inspection Palpation (GI): Soft to palpation Rectal Exam - Female: deferred General: Yes bladder normal to palpation External Female Exam: normal external appearance and normal appearance of the urethra Speculum Exam - Vagina: normal appearance of the vagina, normal palpation, normal vaginal discharge and vaginal bleeding (Small amount of blood at the os) Speculum Exam - Cervix: normal appearance of the cervix and normal palpation Bimanual exam- vagina & uterus: normal bimanual exam, normal palpation, uterine size normal, bladder normal to palpation, normal palpation and non-tender Bimanual Exam- Adnexa, other: no masses OB/external & speculum: vaginal bleeding (Small amount of blood at the os) Skin General skin exam: no rashes or lesions noted Rashes: no rashes Neuro General: patient oriented x3 Cognition (Neuro): normal cognition Extrem General: Yes normal to inspection Psych Attitude: cooperative Thought process: Normal thought process present Assessment & Plan Assessment & Plan (1) Encounter for well woman exam with routine gynecological exam: Code(s): Z01.419 - Encounter for gynecological examination (general) (routine) without abnormal findings Category: Medical Plan Discussed: Current recommendations for pap smears per ASCCP guidelines. Breast awareness and periodic breast exams. Maintain a healthy lifestyle including a well balanced diet and routine exercise. control hormone use warnings: go to ER if and loss of vision, blindness, severe headache, chest pain or difficulty breathing, severe abdominal pain, or any pain or swelling in an extremity. Information on other control options such as Mirena reviewed. Migraine diet changes in tracking charts provided. Patient verbalizes understanding and agrees to the plan of care. She was given opportunity to ask questions and all questions were answered to the best of my ability. RTO in one year for annual it operations analyst examination. This note is constructed using voice recognition software. While every effort has been made to ensure accuracy, delivery coordinator errors may have been included. Orders: Orders Pap Smear Today Z01.419 - Encounter for gynecological examination (general) (routine) without abnormal findings Medications: Refilled norethindrone-e.estradiol-iron 1 mg-20 mcg (21)/75 mg (7) 1 tab PO DAILY 84 days 84 tabs 4RF Coding Level of Care Code Est Pt Prev Care [id number](52608) Diagnoses Encounter for well woman exam with routine gynecological exam Z01.419
== END | disposition home or self-care (01) ==
PROVIDERS: PCP Internal Medicine; Visit Provider Advanced Practice Midwife
CPT/HCPCS: 99395; 99459